=== PATIENT | female | born 1990 | race Asian ===

== ENCOUNTER → 2022-01-11 | Outpatient (CLI) | payer MEDICAID ==
[2022-01-13 15:08] LABS: LEAD <1.0 mcg/dL (<5.0)
== END ==
LOC: COL.LAB 11:21
PROVIDERS: Family Medicine
DX: Z02.89 Encounter for other administrative examinations (principal); D64.9 Anemia, unspecified

== ENCOUNTER → 2023-08-30 | Outpatient (CLI) | payer MEDICAID ==
[~2023-08-30] MED LIST: PRIL40 PO
== END ==
LOC: COL.RAD 12:57
DX: M54.9 Dorsalgia, unspecified (principal)

== ENCOUNTER 2023-10-22 11:52 | Emergency (ER) | payer MEDICAID ==
[~2023-10-22] VITALS: Ht 160 cm; Wt 85.7 kg
[2023-10-22 12:05] VITALS: TEMP 98.2
[2023-10-22 14:14] LABS: BASO % 0.3 % (0.0-2.0); EOS # 0.1 K/mm3 (0.0-0.7); EOS % 0.9 % (0.0-4.0); GRAN # 3.4 K/mm3 (1.4-6.5); GRAN % 59.1 % (42.2-75.2); LYMPH # 1.8 K/mm3 (1.2-3.4); LYMPH % 31.7 % (20.0-51.0); MEAN CELL VOLUME 76 fl (80.0-100.0); MEAN CORPUSCULAR HGB CONC 32 g/dl (33.0-37.0); MEAN PLATELET VOLUME 11.6 fl (7.4-10.4); MONO # 0.5 K/mm3 (0.1-0.6); MONO % 7.8 % (1.7-9.3); PLATELET COUNT 190 K/mm3 (130-400); RED BLOOD COUNT 3.78 M/mm3 (4.10-5.30); REDCELL DISTRIBUTION WIDTH-CV 13.8 % (11.5-14.5)
[2023-10-22 14:15] LABS: HEMATOCRIT 28.6 % (37.0-47.0); HEMOGLOBIN 9.1 g/dl (12.5-16.0); MEAN CORPUSCULAR HEMOGLOBIN 24 pg (27-31)
[2023-10-22] MEDS ORDERED: NS 1,000 ML IV ONE (14:15)
[2023-10-22 14:40] LABS: ALBUMIN 3.5 g/dL (3.5-5.0); CALCIUM 9.5 mg/dL (8.4-10.2); CREATININE, serum 0.67 mg/dL (0.57-1.11); TOTAL PROTEIN 6.9 g/dl (6.2-8.1)
[2023-10-22 15:12] LABS: BILIRUBIN,TOTAL 0.3 mg/dL (0.2-1.2)
[2023-10-22 16:08] VITALS: BP 146/84; PULSE 61
== END 2023-10-22 16:08 | disposition home or self-care (01) ==
LOC: COL.ER 11:52
PROVIDERS: Personal Emergency Response Attendant
DX: N93.9 Abnormal uterine and vaginal bleeding, unspecified (principal)
CPT/HCPCS: J1410; J7030